=== PATIENT | male | born 1990 | race Caucasian/White ===

== ENCOUNTER 2017-10-05 20:46 | Emergency (ER) | payer SELFPAY ==
[2017-10-05 20:54] VITALS: BP 124/83; PULSE 111; RESP 16; TEMP 98.7; O2SAT 97
[2017-10-06] MEDS ORDERED: BACT800T5 PO (21:35)
== END 2017-10-06 02:17 | disposition left against medical advice (07) ==
LOC: NED 20:46
DX: L98.9 Disorder of the skin and subcutaneous tissue, unspecified (principal)
CPT/HCPCS: 99281

== ENCOUNTER 2017-10-06 15:48 | Emergency (ER) | payer SELFPAY ==
[2017-10-06 16:25] VITALS: BP 128/65; PULSE 81; RESP 18; TEMP 98.3; O2SAT 99
[2017-10-06] MEDS ORDERED: BACT800T5 PO (21:35)
--- NOTE | 2017-10-06 21:41 | PD ---
HPI Chief Complaint: Skin Problem Time Seen by Provider: 21:34 Travel History International Travel<30 days: No Contact w/Intl Traveler<30days: No Traveled to known affect area: No History of Present Illness HPI 27-year-old white male presents emergency department with his for evaluation of skin lesions. He states that over the last days to weeks he has noted multiple sores develop on his face, extremities and trunk. 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 He is also had a draining lesion by his buttocks. He denies any fever chills. No nausea vomiting. No diarrhea or dysuria. Symptoms are moderate. He denies picking and scratching. PFSH Past Medical History Narrative Medical MRSA Diminished Hearing: No Tetanus Vaccination: > 5 Years Past Surgical History Surgical History: No Previous Surgery Social History Alcohol Use: Yes (SOCIAL) Tobacco Use: Yes (1.5 PPD) Substance Use: Yes Allergies-Medications (Allergen,Severity, Reaction): Coded Allergies: No Known Allergies (Unverified , 02/24/14) Reported Meds & Prescriptions Reported Meds & Active Scripts Active Bactrim DS (Sulfamethoxazole-Trimethoprim) 800-160 Mg Tab 1 Tab PO BID Review of Systems Except as stated in HPI: all other systems reviewed are Neg Physical Exam Narrative GENERAL: This is a well-nourished, well-developed patient, in no apparent distress. SKIN: Patient has multiple excoriated and scabbed lesions scattered on the face , upper and lower extremities, chest and back. Some have honey crusting some have large scabs. These range in size from just half a centimeter up to one and half centimeters., ecchymoses or lesions. Warm and dry. There is no fluctuance or pointing. No abscess. Examination of the buttocks reveals a draining fistula on the right buttocks. HEAD: Atraumatic. Normocephalic. EYES: PERRL, EOMI, no discharge or injection. No scleral icterus. EARS: Clear NOSE: Nasal turbinates appear normal. THROAT: Mucosa pink and moist. Airway patent. NECK: Trachea midline. supple, moves head freely. LUNGS: Clear to auscultation. CV: Regular in rhythm. ABDOMEN: Soft nontender. EXT: No clubbing cyanosis or edema. Data Data Last Documented VS Vital Signs Date Time Temp Pulse Resp B/P (MAP) Pulse Ox O2 Delivery O2 Flow Rate FiO2 10/06/17 16:25 98.3 81 18 128/65 (86) 99 Orders Orders Ed Discharge Order (10/06/17 21:34) Sulfamet-Trimeth Ds 800-160 Mg (Bactrim (10/06/17 21:45) Tetanus/Diphtheria Tox Adult (Tetanus/Di (10/06/17 21:45) MDM Medical Decision Making Medical Screen Exam Complete: Yes Emergency Medical Condition: Yes Medical Record Reviewed: Yes Differential Diagnosis MDM: High Differential diagnoses: Abscess, folliculitis, cellulitis, lymphangitis, abrasion, contact dermatitis, fistula Narrative Course Patient is given Bactrim DS a tetanus immunization. Patient is advised to follow-up with the [facility]. He is aware that he will need to see a GI specialist for his fistula. This is impetigo, rectal fistula Diagnosis Primary Impression: impetigo Additional Impression: rectal fistula Referrals: [facility] 2 days Patient Instructions: General Instructions Additional Instructions: Rest. Elevation. keep clean and dry. remove the packing in two days. Daily wound care with soap, water and Neosporin. Three Advil every 6 hours. Bactrim DS. Follow-up with the [facility] area clinic in the next 1-2 days. Return to the ER for any problems. Med/Other Pt SpecificInfo: Prescription(s) given Scripts Sulfamethoxazole-Trimethoprim (Bactrim DS) 800-160 Mg Tab 1 TAB PO BID for Infection, #20 TAB 0 Refills Prov: Benjy Stubbs MD 10/06/17 Disposition: 01 DISCHARGE HOME Condition: Stable Dusty Napoles Oct 06, 2017 21:41
[2017-10-06] MEDS ORDERED: SULFAMETHOXAZOLE-TRIMETHOPRIM DS 800-160 MG TAB PO ONE (21:45)
[2017-10-06] MEDS ORDERED: TETANUS/DIPHTHERIA TOXOID ADULT 0.5 ML VIAL IM ONE (21:45)
== END 2017-10-06 22:25 | disposition home or self-care (01) ==
LOC: NED 15:48 → NEPK 22:25
DX: L01.00 Impetigo, unspecified (principal); K60.4 Rectal fistula; Z86.14 Personal history of Methicillin resistant Staphylococcus aureus infection; F17.200 Nicotine dependence, unspecified, uncomplicated; Z23 Encounter for immunization
CPT/HCPCS: 90471; 90714